=== PATIENT | female | born 1965 | race Asian ===

== ENCOUNTER 2022-03-08 22:12 | Emergency (ER) | payer OTHER ==
[~2022-03-08] VITALS: Ht 152.4 cm; Wt 99.8 kg
[2022-03-08 22:12] VITALS: TEMP 98.1
[~2022-03-08 22:12] MED LIST: ACET-206 PO; ACID REDUCER20.6 MG PO; ATOR20TA2 PO; CHOL100034 PO; CYAN10009 IM; DIVA250T2 PO; DIVA500T2 PO; DIVALPROEX250 M1 PO; HALO50IN4 IM; INSU100P SC; INSU300I SC; LORA1TAB17 PO; MAGNSUS68 PO; METF100038 PO; METF500T PO; MICRO-K10 MEQ PO; MIRALAX 17GM PAK PO; OLAN10INJ IM; OLANZAPINE5 M1 PO; OLANZAPINE5 MG PO; OMEPRAZOLE DR20 MG PO; PALI3TAB PO; PANTOPRAZOLE 40MG TA PO; POTA20TA4 PO; POTASSIUM CL PO; RISP1TAB PO; RISP50IN IM; RISPERDAL12.5 MG IM; RISPERDAL3 MG PO; SENNA LAX8.6 MG PO; TYLENOL325 MG PO; VITAMIN D350000 UNIT PO; ZIPR20CA PO; [UNRECOGNIZED DRUG - CODE] XX
[2022-03-08 22:57] LABS: PLATELET COUNT 268 K/uL (152-353)
[2022-03-08 23:08] LABS: POTASSIUM 3.8 mmol/L (3.6-5.2)
[2022-03-09 01:40] VITALS: BP 137/80
[2022-03-09] MEDS ORDERED: CYANOCOBALAMIN IM (08:52)
[2022-03-09] MEDS ORDERED: HALDOL DECANOATE IM (08:56)
[2022-03-09] MEDS ORDERED: HUMULIN 70/30 SC (09:04)
[2022-03-09] MEDS ORDERED: HUMULIN R100 UNIT/M (09:07)
[2022-03-09] MEDS ORDERED: INSULIN GL100 UNIT/M SC (09:10)
[2022-03-09] MEDS ORDERED: OLANZAPINE5 M1 PO (09:14)
== END 2022-03-09 01:40 | disposition still patient (30) ==
LOC: ED 22:12
PROVIDERS: Emergency Medicine Emergency Medical Services
DX: F03.91 Unspecified dementia, unspecified severity, with behavioral disturbance (principal); E11.65 Type 2 diabetes mellitus with hyperglycemia; Z79.4 Long term (current) use of insulin; Z79.84 Long term (current) use of oral hypoglycemic drugs; Z11.52 Encounter for screening for COVID-19; Z04.6 Encounter for general psychiatric examination, requested by authority
CPT/HCPCS: 36415; 80053; 81002; 85027; 87635; 93005; 96372; 99283; J1815; U0003